=== PATIENT | female | born 1965 | race Asian ===

== ENCOUNTER 2019-04-19 07:35 | Emergency (ER) | payer OTHER ==
[~2019-04-19] VITALS: Ht 177.8 cm; Wt 68.0 kg
[2019-04-19 08:29] LABS: BASOPHILS % (AUTO) 0.3 % (0.0-2.0); HEMATOCRIT 42 % (33-45); HEMOGLOBIN 13.9 g/dL (11.5-14.8); LYMPHOCYTES # (AUTO) 1.8 /CMM (0.8-4.8); MEAN CORPUSCULAR HGB CONC 33 g/dl (31.0-36.0); MEAN CORPUSCULAR VOLUME 88 fL (82-100); MONOCYTES # (AUTO) 0.4 /CMM (0.1-1.30); MONOCYTES % (AUTO) 4.2 % (2.0-12.0); NEUTROPHILS # (AUTO) 6.2 /CMM (1.8-8.9); NEUTROPHILS % (AUTO) 73.5 % (43.0-81.0); PLATELET COUNT (AUTO) 277 /CMM (150-450); RED BLOOD CELL COUNT(AUTO) 4.82 MIL/uL (4.0-5.2); WHITE BLOOD COUNT (AUTO) 8.4 K/uL (4.3-11.0)
[2019-04-19] MEDS ORDERED: ONDANSETRON HCL/PF 4 MG/2 ML VIAL IVP ONE (08:30)
[2019-04-19] MEDS ORDERED: ONDANSETRON HCL/PF 4 MG/2 ML VIAL ONE (08:30)
[2019-04-19] MEDS ORDERED: IV NS 0.9% 1,000 ML BAG IV ONE (08:30)
[2019-04-19 08:37] LABS: CALCIUM, SERUM 9.1 mg/dL (8.5-10.1); CREATININE 0.7 mg/dL (0.6-1.3)
[2019-04-19 08:44] LABS: ALBUMIN 4.1 g/dL (3.4-5.0); BILIRUBIN,DIRECT 0.1 mg/dL (0.0-0.2); BILIRUBIN,TOTAL 0.2 mg/dL (0.2-1.0); TOTAL PROTEIN, SERUM 7.3 g/dL (6.4-8.2)
--- NOTE | 2019-04-19 09:20 | NUR ---
PATIENT BIBSELF C/O ABDOMINAL PAIN OF 7/10, PATIENT PRIOR HAD 2 EPISODES OF VOMITING AND 5 BM. PATIENT WITH IV NS INFUSING ON THE LEFT HAND #20G. PATIENT GIVEN ZOFRAN IV. WILL CONTINUE TO MONITOR.
--- NOTE | 2019-04-19 09:37 | NUR ---
PT IS WHEELED TO CT SCAN VIA [facility].
[2019-04-19 10:45] VITALS: BP 145/80
--- NOTE | 2019-04-19 10:45 | NUR ---
Patient discharged to home in stable condition. Written and verbal after care instructions given. Patient verbalizes understanding of instruction.
== END 2019-04-19 10:47 | disposition home or self-care (01) ==
LOC: ER 07:40
DX: R11.2 Nausea with vomiting, unspecified (principal); R10.84 Generalized abdominal pain
CPT/HCPCS: 36415; 74176; 80048; 80076; 83690; 85025; 96361; 96374; 99284; J2405; J7030

== ENCOUNTER 2019-09-12 14:09 | Emergency (ER) | payer OTHER ==
[~2019-09-12] VITALS: Ht 149.9 cm; Wt 59.0 kg
[2019-09-12 14:18] VITALS: BP 149/99
--- NOTE | 2019-09-12 14:57 | NUR ---
Patient discharged to home in stable condition. Written and verbal after care instructions given. Patient verbalizes understanding of instruction. denies any pain or discomfort at this time. specimen collected and sent to lab.
== END 2019-09-12 14:56 | disposition home or self-care (01) ==
LOC: ER 14:15
DX: Z20.828 Contact with and (suspected) exposure to other viral communicable diseases (principal)
CPT/HCPCS: 36415

== ENCOUNTER 2019-12-18 09:26 | Outpatient (CLI) | payer BC, OTHER ==
[2019-12-18 10:49] LABS: BASOPHILS % (AUTO) 0.4 % (0.0-2.0); EOSINOPHILS % (AUTO) 2.1 % (0.0-6.0); HEMATOCRIT 40 % (33-45); LYMPHOCYTES # (AUTO) 1.6 /CMM (0.8-4.8); LYMPHOCYTES % (AUTO) 41.7 % (20.0-44.0); MEAN CORPUSCULAR HGB CONC 32 g/dl (31.0-36.0); MEAN CORPUSCULAR VOLUME 91 fL (82-100); MONOCYTES # (AUTO) 0.2 /CMM (0.1-1.30); MONOCYTES % (AUTO) 6.3 % (2.0-12.0); NEUTROPHILS # (AUTO) 1.9 /CMM (1.8-8.9); NEUTROPHILS % (AUTO) 49.5 % (43.0-81.0); PLATELET COUNT (AUTO) 205 /CMM (150-450); RED BLOOD CELL COUNT(AUTO) 4.46 MIL/uL (4.0-5.2); WHITE BLOOD COUNT (AUTO) 3.8 K/uL (4.3-11.0)
[2019-12-18 11:02] LABS: APPEARANCE,URINE SL CLOUDY (CLEAR); BILIRUBIN,URINE NEGATIVE (NEGATIVE); BLOOD, URINE TRACE-INTA Ery/uL (NEGATIVE); KETONES,URINE NEGATIVE (NEGATIVE); LEUKOCYTE ESTERASE ,URINE NEGATIVE (NEGATIVE); NITRITE, URINE NEGATIVE (NEGATIVE); PROTEIN,URINE NEGATIVE (NEGATIVE); UGLUCOSE NEGATIVE (NEGATIVE); UROBILINOGEN,URINE 0.2 EU/dL (0.2)
[2019-12-18 11:08] LABS: COLOR,URINE STRAW (YELLOW)
[2019-12-18 11:45] LABS: FREE T4 (FREE THYROXINE) 0.94 ng/dL (0.76-1.46); THYROID STIMULATING HORMONE 1.554 uIU/mL (0.358-3.74)
[2019-12-18 11:55] LABS: BACTERIA,URINE Many /HPF (None Seen); SQUAMOUS EPITHELIAL CELL,UR Moderate /HPF (None Seen)
== END 2019-12-18 23:59 | disposition home or self-care (01) ==
LOC: LAB 09:26
PROVIDERS: ATTEND Family Medicine
DX: Z00.01 Encounter for general adult medical examination with abnormal findings (principal); L98.9 Disorder of the skin and subcutaneous tissue, unspecified
CPT/HCPCS: 36415; 70250-TC; 80061-TC; 81000-TC; 84439-TC; 84443-TC; 85025-TC; 87086-TC

== ENCOUNTER → 2020-01-29 | Outpatient (CLI) | payer BC, OTHER ==
[2020-01-29 09:43] LABS: BASOPHILS % (AUTO) 0.4 % (0.0-2.0); EOSINOPHILS % (AUTO) 1.7 % (0.0-6.0); HEMATOCRIT 39 % (33-45); HEMOGLOBIN 12.6 g/dL (11.5-14.8); LYMPHOCYTES # (AUTO) 1.7 /CMM (0.8-4.8); LYMPHOCYTES % (AUTO) 37.4 % (20.0-44.0); MEAN CORPUSCULAR HGB CONC 33 g/dl (31.0-36.0); MEAN CORPUSCULAR VOLUME 87 fL (82-100); MONOCYTES # (AUTO) 0.3 /CMM (0.1-1.30); MONOCYTES % (AUTO) 7.4 % (2.0-12.0); NEUTROPHILS # (AUTO) 2.4 /CMM (1.8-8.9); NEUTROPHILS % (AUTO) 53.1 % (43.0-81.0); PLATELET COUNT (AUTO) 232 /CMM (150-450); RED BLOOD CELL COUNT(AUTO) 4.43 MIL/uL (4.0-5.2); WHITE BLOOD COUNT (AUTO) 4.5 K/uL (4.3-11.0)
== END | disposition home or self-care (01) ==
LOC: CT 08:19
PROVIDERS: ATTEND Family Medicine
DX: D70.9 Neutropenia, unspecified (principal); M89.9 Disorder of bone, unspecified
CPT/HCPCS: 70450-TC; 85025-TC; 85610-TC

== ENCOUNTER 2020-03-25 08:32 | Outpatient (CLI) | payer BC, OTHER ==
[2020-03-25 09:35] LABS: CREATININE 0.7 mg/dL (0.6-1.3)
== END 2020-03-25 23:59 | disposition home or self-care (01) ==
LOC: LAB 08:32
PROVIDERS: ATTEND Family Medicine
DX: R31.9 Hematuria, unspecified (principal)
CPT/HCPCS: 36415; 82565-TC; 84520-TC

== ENCOUNTER 2020-04-01 08:32 | Outpatient (CLI) | payer BC, OTHER ==
[2020-04-01] MEDS ORDERED: IV NS 0.9% 250 ML IV ONE (08:52)
[2020-04-01] MEDS ORDERED: IOHEXOL-300 100 ML VIAL IV ONE (08:52)
[2020-04-01] MEDS ORDERED: CT SWABBABLE VALVE TRANS SET 1 EA INFUS.SET MC ONE (08:52)
== END 2020-04-01 23:59 | disposition home or self-care (01) ==
LOC: CT 08:32
PROVIDERS: ATTEND Family Medicine
DX: K76.89 Other specified diseases of liver (principal); R31.9 Hematuria, unspecified; I70.0 Atherosclerosis of aorta; M47.816 Spondylosis without myelopathy or radiculopathy, lumbar region
CPT/HCPCS: 74178; J7050; Q9967

== ENCOUNTER 2020-11-15 08:02 | Outpatient (CLI) | payer BC, OTHER | END 2020-11-15 23:59 | disposition home or self-care (01) | LOC: RAD 08:02 | PROVIDERS: ATTEND Family Medicine | DX: M17.0 Bilateral primary osteoarthritis of knee (principal); M51.37 Other intervertebral disc degeneration, lumbosacral region; M46.05 Spinal enthesopathy, thoracolumbar region | CPT/HCPCS: 72100-TC; 73562 ==

== ENCOUNTER 2020-12-30 14:40 | Outpatient (CLI) | payer BC, OTHER ==
[2021-01-02 17:06] LABS: H. PYLORI AB IgA <9.0 units (0.0-8.9)
== END 2020-12-30 23:59 | disposition home or self-care (01) ==
LOC: LAB 14:40
PROVIDERS: ATTEND Family Medicine
DX: Z20.9 Contact with and (suspected) exposure to unspecified communicable disease (principal)
CPT/HCPCS: 36415; 86677

== ENCOUNTER 2021-02-17 08:37 | Outpatient (CLI) | payer BC, OTHER | END 2021-02-17 23:59 | disposition home or self-care (01) | LOC: RAD 08:37 | PROVIDERS: ATTEND Family Medicine | DX: M47.817 Spondylosis without myelopathy or radiculopathy, lumbosacral region (principal); M85.88 Other specified disorders of bone density and structure, other site | CPT/HCPCS: 72100-TC ==

== ENCOUNTER 2021-04-05 11:35 | Outpatient (CLI) | payer BC, OTHER | END 2021-04-05 23:59 | disposition home or self-care (01) | LOC: MRI 11:35 | PROVIDERS: ATTEND Family Medicine | DX: M47.817 Spondylosis without myelopathy or radiculopathy, lumbosacral region (principal); M51.26 Other intervertebral disc displacement, lumbar region; M48.07 Spinal stenosis, lumbosacral region | CPT/HCPCS: 72148-TC ==

== ENCOUNTER 2021-06-26 08:34 | Outpatient (CLI) | payer BC, OTHER | END 2021-06-26 23:59 | disposition home or self-care (01) | LOC: RAD 08:34 | PROVIDERS: ATTEND Family Medicine | DX: M25.511 Pain in right shoulder (principal); M79.671 Pain in right foot | CPT/HCPCS: 73030-TC; 73630-TC ==

== ENCOUNTER 2021-08-12 07:02 | Outpatient (CLI) | payer BC, OTHER | END 2021-08-12 23:59 | disposition home or self-care (01) | LOC: LAB 07:02 | PROVIDERS: ATTEND Family Medicine | DX: Z75.3 Unavailability and inaccessibility of health-care facilities (principal) ==

== ENCOUNTER 2021-12-22 07:29 | Outpatient (CLI) | payer BC, OTHER ==
[2021-12-22 07:47] LABS: BILIRUBIN,URINE NEGATIVE (NEGATIVE); COLOR,URINE YELLOW (YELLOW); LEUKOCYTE ESTERASE ,URINE NEGATIVE (NEGATIVE); NITRITE, URINE NEGATIVE (NEGATIVE); PROTEIN,URINE NEGATIVE (NEGATIVE); UGLUCOSE NEGATIVE (NEGATIVE); UROBILINOGEN,URINE 0.2 EU/dL (0.2)
[2021-12-22 12:08] LABS: BACTERIA,URINE Few /HPF (None Seen); SQUAMOUS EPITHELIAL CELL,UR Few /HPF (None Seen); URINE AMORPHOUS URATE Many /HPF (None Seen); WBC,URINE 0-2 /HPF (0-3)
== END 2021-12-22 23:59 | disposition home or self-care (01) ==
LOC: LAB 07:29
PROVIDERS: ATTEND Family Medicine
DX: N39.0 Urinary tract infection, site not specified (principal)
CPT/HCPCS: 81001; 87086-TC

== ENCOUNTER 2022-05-09 07:44 | Outpatient (CLI) | payer BC, OTHER | END 2022-05-09 23:59 | disposition home or self-care (01) | LOC: LAB 07:44 | PROVIDERS: ATTEND Family Medicine | DX: R31.9 Hematuria, unspecified (principal) | CPT/HCPCS: 87086-TC ==

== ENCOUNTER 2022-05-09 08:18 | Emergency (ER) | payer BC, OTHER ==
[~2022-05-09] VITALS: Ht 152.4 cm; Wt 61.2 kg
[2022-05-09 08:25] VITALS: BP 141/89
--- NOTE | 2022-05-09 09:03 | NUR ---
Patient discharged to home in stable condition. Written and verbal after care instructions given. Patient verbalizes understanding of instruction.
== END 2022-05-09 09:02 | disposition home or self-care (01) ==
LOC: ER 08:20
DX: H11.31 Conjunctival hemorrhage, right eye (principal); I10 Essential (primary) hypertension